=== PATIENT | female | born 1960 | race Caucasian/White ===

== ENCOUNTER 2022-01-05 17:53 | Emergency (ER) | payer BC ==
[2022-01-05 18:05] VITALS: BP 127/63; PULSE 71; TEMP 98; BMI 26.6
== END 2022-01-05 20:10 | disposition home or self-care (01) ==
LOC: JERFT 17:53 → JER 17:53 → JERFT 20:10
DX: Z20.822 Contact with and (suspected) exposure to COVID-19 (principal)
CPT/HCPCS: 99282-25